=== PATIENT | male | born 1965 | race Caucasian/White ===

== ENCOUNTER → 2018-01-02 08:28 | Outpatient (REF) | payer MEDICAID, SELFPAY ==
[2018-01-02 20:47] LABS: ALT 30 U/L (12-78); AST 21 U/L (15-37); Albumin 3.8 g/dL (3.4-5.0); Alkaline Phosphatase 57 U/L (46-116); Anion Gap 8.7 mmol/L (3-11); BUN 16 mg/dL (7-18); Bilirubin, Total 0.8 mg/dL (0.2-1.0); CO2 28.3 mmol/L (21.0-32.0); Calcium 9.1 mg/dL (8.5-10.1); Chloride 104 mmol/L (98-107); Cholesterol 176 mg/dL (50-200); Glucose 102 mg/dL (70-100); HDL Cholesterol 30 mg/dL (40-60); LDL CHOLESTEROL 118 mg/dL (<100); Sodium 141 mmol/L (136-145); Total Protein 6.9 g/dL (6.4-8.2); Triglyceride 250 mg/dL (30-150)
== END ==
LOC: NCHCN 08:28
PROVIDERS: PCP Family Medicine; Visit Provider Family Medicine
DX: E78.5 Hyperlipidemia, unspecified (principal)
CPT/HCPCS: 80053; 80061; 83721

== ENCOUNTER 2020-03-12 16:23 | Outpatient (REF) | payer OTHER, SELFPAY ==
[2020-03-12 19:45] LABS: ALT 34 U/L (16-63); AST 19 U/L (15-37); Alkaline Phosphatase 61 U/L (46-116); Anion Gap 11.6 mmol/L (3-11); BUN 16 mg/dL (7-18); Bilirubin, Total 0.5 mg/dL (0.2-1.0); CO2 26.4 mmol/L (21.0-32.0); CREATININE 0.95 mg/dL (0.70-1.30); Calcium 9.3 mg/dL (8.5-10.1); Chloride 101 mmol/L (98-107); Cholesterol 244 mg/dL (<200); Glucose 104 mg/dL (74-106); HDL Cholesterol 27 mg/dL (40-60); Potassium 3.6 mmol/L (3.5-5.1); Sodium 139 mmol/L (136-145); Total Protein 7.5 g/dL (6.4-8.2); Triglyceride 448 mg/dL (<150)
[2020-03-12 20:12] LABS: LDL CHOLESTEROL 160 mg/dL (<100)
[2020-03-17 16:27] LABS: PSA, Screening 0.6 ng/mL (0-3.5)
== END 2020-03-12 16:43 ==
LOC: NCHCN 16:23
PROVIDERS: PCP Family Medicine; Visit Provider Family Medicine
DX: Z00.00 Encounter for general adult medical examination without abnormal findings (principal); I10 Essential (primary) hypertension; E78.5 Hyperlipidemia, unspecified
CPT/HCPCS: 80053; 80061; 83721; 84153

== ENCOUNTER 2020-04-23 18:08 | Outpatient (REF) | payer OTHER, SELFPAY ==
[2020-04-23 17:59] LABS: C Diff PCR Negative (Negative)
[2020-04-23 19:11] LABS: Abs Immature Grans 0.04 10^3/uL (0.0-0.06); Absolute Basophil Count 0.04 10^3/uL (0.0-0.2); Absolute Eosinophil Count 0.02 10^3/uL (0.0-0.7); Absolute Lymphocyte Count 1.14 10^3/uL (1.2-3.4); Absolute Monocyte Count 0.78 10^3/uL (0.1-0.8); Absolute Neutrophil Count 9.98 10^3/uL (1.2-6.7); Basophils % 0.3; Eosinophils % 0.2; HCT 46.4 % (40.0-50.0); HGB 15.1 g/dL (13.5-17.5); Immature Grans % 0.3; Lymphocytes % 9.5; MCH 27.4 pg (27.0-33.0); MCHC 32.5 % (32.0-36.0); MCV 84.2 fL (80-95); MPV 10.6 fL (8.0-11.0); Monocytes % 6.5; Neutrophils % 83.2; Nucleated RBC 0 %; RBC 5.51 10^6/uL (4.36-5.78); RDW 12.8 % (11.8-14.1); RDW-SD 39.3 fL
[2020-04-23 19:29] LABS: ALT 40 U/L (16-63); AST 25 U/L (15-37); Albumin 4.1 g/dL (3.4-5.0); Alkaline Phosphatase 59 U/L (46-116); Anion Gap 11.9 mmol/L (3-11); BUN 18 mg/dL (7-18); Bilirubin, Total 0.7 mg/dL (0.2-1.0); CO2 26.1 mmol/L (21.0-32.0); CREATININE 0.78 mg/dL (0.70-1.30); Calcium 9.1 mg/dL (8.5-10.1); Chloride 102 mmol/L (98-107); Glucose 89 mg/dL (74-106); Potassium 3.4 mmol/L (3.5-5.1); Sodium 140 mmol/L (136-145); Total Protein 7.3 g/dL (6.4-8.2)
[2020-04-23 19:44] LABS: Platelet Count 353 10^3/uL (130-400)
[2020-04-24 11:52] LABS: Campylobacter PCR Negative (Negative); Salmonella PCR Negative (Negative); Shiga Toxin PCR Negative (Negative); Shigella/Enteroinvasive Ecoli Negative (Negative)
== END 2020-04-23 18:28 ==
LOC: NCHCN 18:08
PROVIDERS: PCP Family Medicine; Visit Provider Nurse Practitioner Family
DX: R19.7 Diarrhea, unspecified (principal); R10.9 Unspecified abdominal pain
CPT/HCPCS: 80053; 87329; 87493; 87505; 83630; 85025

== ENCOUNTER 2021-03-11 12:56 | Outpatient (REF) | payer OTHER, SELFPAY ==
[2021-03-12 19:55] LABS: COVID-19 RT-PCR UVMMC Result Positive (Negative)
== END 2021-03-11 12:57 | disposition home or self-care (01) ==
LOC: NCHCN 12:56
PROVIDERS: PCP Family Medicine; Visit Provider Family Medicine
DX: Z20.822 Contact with and (suspected) exposure to COVID-19 (principal)
CPT/HCPCS: U0003

== ENCOUNTER 2021-03-15 12:06 | Emergency (ER) | payer OTHER, SELFPAY ==
[2021-03-15] VITALS (42 sets, daily range): BP systolic 130–155; BP diastolic 62–92; PULSE 93–104; RESP 19–36; TEMP 37.4–38.4; O2SAT 92–99
--- NOTE | 2021-03-15 13:00 | RT.EKG_ITS ---
APPROVED REPORT Exam: Resting ECG Reason for Exam: sob Patient Location: E HR:98 bpm ECG Measurements Heart Rate 98 AXIS WA 138 P 23 QRSd 96 QRS 13 QT 376 T -23 QTc 482 Conclusion Sinus rhythm...normal P axis, V-rate 60- 99 Nonspecific T abnormalities, diffuse leads...T <-0.10mV, ant/lat/inf. Sinus. T wave inversion II, III, aVF, V4-6. No STEMI. I have reviewed and interpreted ECG and agree with software generated interpretation.
--- NOTE | 2021-03-15 13:00 | DI.CT_ITS ---
Exam(s) CT CHEST PE CTA EXAM: CT CHEST PE CTA CLINICAL HISTORY: + Covid, sob. TECHNIQUE: Imaging Protocol: Axial CT angiography was performed with multi-slice acquisition and mu lti-planar and/or 3D reconstructions. CONTRAST MATERIAL: Intravenous: Omnipaque 350 Contrast volume:structured data in ml COMPARISON: No exams were available for comparison FINDINGS: CT angiography of the chest was performed with intravenous infusion of 100 cc of Omnipaque 350. There are multi focal predominantly peripheral intra pulmonary ground-glass and consolidative opaciti es consistent with the patient's known COVID pneumonia. No pleural effusion. Tracheobronchial tree a ppears intact. No evidence of pulmonary embolic disease. Thoracic aorta is of normal diameter, no thoracic aortic an eurysm or dissection, major branch vessels appear intact. No mediastinal or hilar adenopathy. Images obtained through the upper abdomen show hepatic steatosis. There is an unremarkable appearanc e of visualized portions spleen, pancreas, gallbladder, ducts and adrenals. There Ivory rods fused thoracic. There are sclerotic lesions of what appear to T1-T2 vertebral bodies, these have an appearance consistent bone islands but metastatic disease is not excluded basis of this examination. And bone scan may be considered if clinically appropriate, please correlate wi th any known history of malignancy. IMPRESSION: No evidence of pulmonary embolic disease. Multifocal pneumonia as described above in a patient who i s reportedly COVID positive period Indeterminate sclerotic lesions of T1 and T2 vertebral bodies, bone scan suggested for correlation if clinically appropriate. RADIATION DOSE DELIVERED: 524.88mGy.cm Total DLP 524.88mGy.cm Total DLP 14.55mGy CTDIvol DATA REPOSITORY: All CT scans at this facility are submitted to the National Radiology Data Registry (NRDR) Dose Index Registry (DIR) with the [employer] ([employer]). RADIATION OPTIMIZATION: All CT scans at this facility use at least one of these dose optimization te chniques: automated exposure control; mA and/or kV adjustment per patient size (includes targeted exa ms where dose is matched to clinical indication); or iterative reconstruction.
--- NOTE | 2021-03-15 13:17 | ED.GENADUL_ITS ---
Discharge Plan Disposition Patient Disposition: HOME Condition: Improving Discharge Details Clinical Impression: COVID, Hypokalemia Primary Care Provider: Susan Erickson V ED Provider: Rusty Mcgee Home Meds and New Rx's Prescriptions: Continued hydrochlorothiazide 25 MG tablet 25 mg PO DAILY RF: 0 simvastatin 10 MG tablet 10 mg PO DAILY RF: 0 atenolol 25 MG tablet 25 mg PO DAILY RF: 0 doxycycline monohydrate 100 MG tablet 100 mg PO BID Qty: 20 RF: 0 (DME) peak flow meter [Airzone Peak Flow Meter] 1 EACH device 1 ea Miscellaneous Q4H PRN Qty: 1 RF: 0 Discharge Instructions Instructions: Hypokalemia (ED), COVID-19 (Coronavirus Disease 2019) (ED) Additional Instructions: Your antibody infusion is complete. The rest of your work-up is unremarkable except for your low potassium. As we discussed I recommend having food and drink high in potassium over the next couple of days and then having an outpatient redraw through your primary care provider to be sure is an appropriate level. Plenty of fluids to avoid dehydration. [id number] Tylenol and/or Motrin as directed for discomfort. You will be going home today with a pulse oximeter, please watch your oxygen levels, if it drops below 90 on a consistent basis you will need to return to the ER. Otherwise please watch for new or worsening symptoms and return immediately to the ER. Lastly, I do recommend contacting your primary care provider tomorrow to discuss your ER visit, antibiotic infusion, and need for outpatient reevaluation. Discharge Data Discharge Date/Time-TO BE ENTERED AT DEPARTURE: 03/15/21 17:36 Medical Decision Making 56-year-old gentleman, not vaccinated, began Covid-like symptoms less than 10 days ago, subsequent positive test, has not started antibody infusions, presents today for worsening symptoms, shortness of breath, cough, dehydration and fatigue. Clinically he appears dry but is afebrile, sats are 93% on room air. Will obtain IV access, initiate a Covid work-up but will not retest for Covid itself as patient was recently positive. Given his ongoing shortness of breath will obtain CTA of the chest for further evaluation of disease severity and or PE. Patient and I discussed pros and cons of monoclonal antibody infusion, answered all of his questions best my ability, after doing so using shared decision-making option was to move forward with the infusion. Patient received a total of 2 L IV fluid. Given his hypokalemia he was also given 10 IV potassium and 40 p.o. potassium. During his ER observation he did develop a fever, given 1 g of p.o. Tylenol and upon reevaluation no longer was febrile. Patient tolerated the infusion well without any complications. He was observed in the ER for at least 1 hour after the infusion was completed Laboratory values reveal a white blood cell count of 6.37, D-dimer 1208, VBG of 1.2, potassium was 2.6, creatinine 0.9 with a GFR greater than 60, ferritin 506, lactate dehydrogenase 404, troponin less than 0.05 [address]cal[address] less than 0.1. [address] imaging negative for PE, does reveal multifocal pneumonia. Also reveals, indeterminate sclerotic lesions of T1 and T2 vertebral bodies We had a lengthy discussion regarding his presentation, vaccine status, hypokalemia, potassium supplementation, and other laboratory values. Patient is not requiring any symptoms oxygen, he appears not to feel well but appears stable, nontoxic. We discussed the importance of adequate hydration and making sure that he is sure to increase his potassium intake over the next few days with things such as eating bananas, drinking Gatorade-Powerade, etc. He will be sent home with a pulse oximeter to monitor his oxygen levels if they drop below 90 on excessive basis will return immediately to the ER. Otherwise he will contact his primary care provider to discuss his ongoing symptoms, antibiotic infusion, need for outpatient laboratory draw to recheck his potassium, I discus sed the sclerotic lesion of T1 and T2 which was incidentally found on his CTA. Patient has no additional questions or concerns and is comfortable discharge. Patient does admit that he is feeling moderate improvement with IV hydration, antibiotic infusion, Tylenol, etc. Strict discharge and return precautions provided This documentation was generated using [employer] system, please disregard any oddities of phrase or misspellings. Medical Records Medical records reviewed: Yes I reviewed the patient's medical records. Imaging Data Radiologic Study: Attestation: I personally reviewed and interpreted this imaging study as follows: Radiologist's impression: EXAM CT CHEST PE CTA CLINICAL HISTORY + Covid, sob. [] TECHNIQUE Imaging Protocol: Axial CT angiography was performed with multi-slice acquisition and multi-planar and/or 3D reconstructions. CONTRAST MATERIAL Intravenous: Omnipaque 350 Contrast volume:[structured data in ml] COMPARISON [No exams were available for comparison] [] FINDINGS [CT angiography of the chest was performed with intravenous infusion of 100 cc of Omnipaque 350. There are multi focal predominantly peripheral intra pulmonary ground-glass and consolidative opacities consistent with the patient's known COVID pneumonia. No pleural effusion. Tracheobronchial tree appears intact. No evidence of pulmonary embolic disease. Thoracic aorta is of normal diameter, no thoracic aortic aneurysm or dissection, major branch vessels appear intact. No mediastinal or hilar adenopathy. Images obtained through the upper abdomen show hepatic steatosis. There is an unremarkable appearance of visualized portions spleen, pancreas, gallbladder, ducts and adrenals. There Ivory rods fused thoracic. There are sclerotic lesions of what appear to T1-T2 vertebral bodies, these have an appearance consistent bone islands but metastatic disease is not excluded basis of this examination. And bone scan may be considered if clinically appropriate, please correlate with any known history of malignancy. IMPRESSION [No evidence of pulmonary embolic disease. Multifocal pneumonia as described above in a patient who is reportedly COVID positive period Indeterminate sclerotic lesions of T1 and T2 vertebral bodies, bone scan suggested for correlation if clinically appropriate Lab Data Lab results reviewed: Yes I reviewed the patient's lab results. Labs: Laboratory Tests Range/Units 03/15/21 03/15/21 03/15/21 13:28 13:28 13:28 WBC (4.4-10.8) 10^3/uL 6.37 RBC (4.36-5.78) 10^6/uL 5.46 Hgb (13.5-17.5) g/dL 14.8 Hct (40.0-50.0) % 44.0 MCV (80-95) fL 80.6 MCH (27.0-33.0) pg 27.1 MCHC (32.0-36.0) % 33.6 RDW (11.8-14.1) % 13.0 Plt Count (130-400) 10^3/uL 137 MPV (8.0-11.0) fL 9.9 Immature Gran % 0.8 Neutrophils % 88.8 Lymphocytes % 6.9 Monocytes % 3.3 Eosinophils % 0.0 Basophils % 0.2 Nucleated RBC % % 0 Absolute Neutrophils (1.2-6.7) 10^3/uL 5.66 Absolute Lymphocytes (1.2-3.4) 10^3/uL 0.44 L Absolute Monocytes (0.1-0.8) 10^3/uL 0.21 Absolute Eosinophils (0.0-0.7) 10^3/uL 0.00 Absolute Basophils (0.0-0.2) 10^3/uL 0.01 D-Dimer (<500) ng/mlFEU VBG Lactate (0.6-1.4) mmol/L 1.2 Sodium (136-145) mmol/L 136 Potassium (3.5-5.1) mmol/L 2.6 L* Chloride (98-107) mmol/L 94 L Carbon Dioxide (21.0-32.0) mmol/L 31.3 Anion Gap (3-11) mmol/L 10.7 BUN (7-18) mg/dL 12 Creatinine (0.70-1.30) mg/dL 0.9 Estimated GFR/1.73 m2 (mL/min/1.73m2) >= 60.00 Glucose (74-106) mg/dL 95 Calcium (8.5-10.1) mg/dL 8.6 Ferritin (26-388) ng/mL 506 H Total Bilirubin (0.2-1.0) mg/dL 0.6 AST (15-37) U/L 59 H ALT (16-63) U/L 37 Alkaline Phosphatase (46-116) U/L 62 Lactate Dehydrogenase (85-227) U/L 404 H Troponin I (<0.06) ng/mL < 0.05 C-Reactive Protein (0.0-0.3) mg/dL 8.23 H Total Protein (6.4-8.2) g/dL 7.7 Albumin (3.4-5.0) g/dL 3.4 Procalcitonin ng/mL < 0.1 Range/Units 03/15/21 03/15/21 13:28 16:29 WBC (4.4-10.8) 10^3/uL RBC (4.36-5.78) 10^6/uL Hgb (13.5-17.5) g/dL Hct (40.0-50.0) % MCV (80-95) fL MCH (27.0-33.0) pg MCHC (32.0-36.0) % RDW (11.8-14.1) % Plt Count (130-400) 10^3/uL MPV (8.0-11.0) fL Immature Gran % Neutrophils % Lymphocytes % Monocytes % Eosinophils % Basophils % Nucleated RBC % % Absolute Neutrophils (1.2-6.7) 10^3/uL Absolute Lymphocytes (1.2-3.4) 10^3/uL Absolute Monocytes (0.1-0.8) 10^3/uL Absolute Eosinophils (0.0-0.7) 10^3/uL Absolute Basophils (0.0-0.2) 10^3/uL D-Dimer (<500) ng/mlFEU 1208 H VBG Lactate (0.6-1.4) mmol/L Sodium (136-145) mmol/L Potassium (3.5-5.1) mmol/L Chloride (98-107) mmol/L Carbon Dioxide (21.0-32.0) mmol/L Anion Gap (3-11) mmol/L BUN (7-18) mg/dL Creatinine (0.70-1.30) mg/dL Estimated GFR/1.73 m2 (mL/min/1.73m2) Glucose (74-106) mg/dL Calcium (8.5-10.1) mg/dL Ferritin (26-388) ng/mL Total Bilirubin (0.2-1.0) mg/dL AST (15-37) U/L ALT (16-63) U/L Alkaline Phosphatase (46-116) U/L Lactate Dehydrogenase (85-227) U/L Troponin I (<0.06) ng/mL < 0.05 C-Reactive Protein (0.0-0.3) mg/dL Total Protein (6.4-8.2) g/dL Albumin (3.4-5.0) g/dL Procalcitonin ng/mL ECG Data Attestation: I personally reviewed and interpreted this ECG (s) as follows: Interpretation: Please see official report by Dr. Fontenot. Sinus rhythm, ventricular rate of 98. Nonspecific T wave abnormalities. No STEMI. HPI General Mode of arrival: ambulatory . Date/Time Provider Initiated Documentation: 03/15/21 12:18 . Limitations to Documentation: no limitations . Information obtained by: patient . HPI Narrative: This is a 56-year-old gentleman, past medical history of hypertension, hyperlipidemia, not a smoker, reports developing back pain, Covid-like symptoms last Sunday, tested later that week and came back positive on Sunday, presenting for ongoing dry cough, body aches, fatigue, shortness of breath, hoping that we can initiate monoclonal antibody therapy today. He reports dull global headache. Denies visual changes, neck pain, anterior chest pain, diarrhea, constipation with pain or swelling in his legs. He does report abdominal pain secondary to coughing and when he has a severe coughing fit it does cause him to vomit. He has been taking [id number] medication without much relief. Patient was not vaccinated against Covid. Patient reports diffuse mild body aches currently. Patient also reports decreased intake, concern for dehydration. Related Data Home Medications Medication Instructions Recorded Confirmed hydrochlorothiazide 25 mg PO DAILY 08/22/12 03/15/21 atenolol 25 mg PO DAILY 08/01/15 03/15/21 doxycycline monohydrate 100 mg PO BID #20 tab 08/01/15 03/15/21 peak flow meter [Airzone Peak Flow #1 ea 08/01/15 08/25/15 Meter] simvastatin 10 mg PO DAILY 08/01/15 03/15/21 Previous Rx's Medication Instructions Recorded doxycycline monohydrate 100 mg PO BID #20 tab 08/01/15 peak flow meter [Airzone Peak Flow #1 ea 08/01/15 Meter] Allergies Allergy/AdvReac Type Severity Reaction Status Date / Time morphine AdvReac Intermediate Unverified 03/15/21 12:57 General Stated Complaint: RespSymp NIMO: 3 Review of Systems Constitutional Constitutional: Reports fatigue, Denies fever(s) and Reports headache(s) Eyes Eyes: Denies change in vision ENT Ears, Nose, Mouth, and Throat: Reports headache(s) and Denies neck pain Cardiovascular Cardiovascular: Denies chest pain and Reports dyspnea Respiratory Respiratory: Reports cough and Reports dyspnea Gastrointestinal Gastrointestinal: Reports abdominal pain, Reports nausea and Reports vomiting Genitourinary Genitourinary: Denies dysuria Musculoskeletal Musculoskeletal: Reports myalgias and Denies neck pain Integumentary/Breasts Skin/Breast: Reports rash Neurologic Neurologic: Reports headache(s) Endocrine Endocrine: Reports fatigue Hematologic/Lymphatic Hematologic/Lymphatic: Denies easy bleeding and Denies easy bruising [facility] Social History Smoking/Tobacco Use Status: Never Smoking risk assessment performed?: Yes Alcohol Intake: current Alcohol Intake frequency: holidays/special occasions only Alcohol type: beer Drug use: Never Substance use type: does not use Do you feel safe at home: Yes Do you feel safe in your relationship?: Yes Exam Const General: cooperative, healthy appearing, comfortable and no acute distress Orientation: alert, awake and oriented x3 [facility] Head: normal to inspection, normocephalic and atraumatic Face and sinus: normal facial exam Mouth: moist mucous membranes abnormal (Dry) Eyes General: appearance normal, both eyes and all related structures Conjunctivae: conjunctivae normal Neck Neck: normal visual inspection, full ROM, trachea midline and supple Resp Effort & Inspection: normal respiratory effort, able to speak in complete sentences and cough Quality of cough: dry (mild) Auscultation: diminished lung sounds bilaterally in the lower lung aceves Cardio Rate: regular rate Rhythm: regular rhythm GI Palpation: soft and nontender Back/Spine/Pelvis Back: no CVA tenderness and No back tenderness Skin General skin exam: no rashes or lesions noted Neuro General: patient alert, patient awake, patient oriented x3, moves all extremities and no focal motor deficits Cognition: normal cognition Speech: speech normal Gait: normal gait Motor: muscle tone normal throughout Sensory Exam: no sensory deficits noted Extrem General: normal to inspection, full ROM and capillary refill normal Psych Appearance: grossly normal Mental Status: mental status grossly normal Course Vital Signs Vital signs: Vital Signs Temperature 37.4 C 03/15/21 12:55 Pulse 95 H 03/15/21 12:55 Respiratory Rate 20 03/15/21 12:55 Blood Pressure 143/76 H 03/15/21 12:55 Pulse Oximetry 93 03/15/21 12:55 Temperature 37.4 C 03/15/21 12:55 Temperature Source Skin 03/15/21 12:55 Pulse 95 H 03/15/21 12:55 Respiratory Rate 20 03/15/21 12:55 Respiratory Effort 03/15/21 12:59 Respiratory Depth Normal 03/15/21 12:59 Blood Pressure 143/76 H 03/15/21 12:55 Blood Pressure Position Supine 03/15/21 12:55 Pulse Oximetry 93 03/15/21 12:55 Oxygen Delivery Method Room Air 03/15/21 12:55 Oxygen Flow Rate 0 03/15/21 12:55 Pain Level 10 03/15/21 12:55 Comment 03/15/21 12:55
[2021-03-15 13:36] LABS: Lactate 1.2 mmol/L (0.6-1.4)
[2021-03-15] MEDS: Normal Saline 1,000 ML 1000 ML IV ×2 (13:37→15:10)
[2021-03-15 13:42] LABS: Abs Immature Grans 0.05 10^3/uL (0.0-0.06); Absolute Basophil Count 0.01 10^3/uL (0.0-0.2); Absolute Lymphocyte Count 0.44 10^3/uL (1.2-3.4); Absolute Monocyte Count 0.21 10^3/uL (0.1-0.8); Absolute Neutrophil Count 5.66 10^3/uL (1.2-6.7); Basophils % 0.2; HGB 14.8 g/dL (13.5-17.5); Immature Grans % 0.8; Lymphocytes % 6.9; MCH 27.1 pg (27.0-33.0); MCHC 33.6 % (32.0-36.0); MCV 80.6 fL (80-95); MPV 9.9 fL (8.0-11.0); Monocytes % 3.3; Neutrophils % 88.8; Nucleated RBC 0 %; Platelet Count 137 10^3/uL (130-400); RBC 5.46 10^6/uL (4.36-5.78); RDW-SD 37.8 fL; WBC 6.37 10^3/uL (4.4-10.8)
[2021-03-15 13:57] LABS: ALT 37 U/L (16-63); AST 59 U/L (15-37); Albumin 3.4 g/dL (3.4-5.0); Alkaline Phosphatase 62 U/L (46-116); Anion Gap 10.7 mmol/L (3-11); BUN 12 mg/dL (7-18); Bilirubin, Total 0.6 mg/dL (0.2-1.0); C-Reactive Protein 8.23 mg/dL (0.0-0.3); CO2 31.3 mmol/L (21.0-32.0); CREATININE 0.9 mg/dL (0.70-1.30); Calcium 8.6 mg/dL (8.5-10.1); Chloride 94 mmol/L (98-107); Glucose 95 mg/dL (74-106); LDH 404 U/L (85-227); Sodium 136 mmol/L (136-145); Total Protein 7.7 g/dL (6.4-8.2)
[2021-03-15 13:59] LABS: Potassium 2.6 mmol/L (3.5-5.1); Troponin I < 0.05 ng/mL (<0.06)
[2021-03-15 14:13] LABS: D-Dimer 1208 ng/mlFEU (<500)
[2021-03-15] MEDS: Potassium Chloride 20 MEQ TABCR 40 MEQ PO (14:21)
[2021-03-15 14:22] LABS: Ferritin 506 ng/mL (26-388)
[2021-03-15] MEDS: Omnipaque 350 MG/ML 100 ML BTL IJ (14:22)
[2021-03-15] MEDS: Normal Saline - Diluent 50 ML VIAL IV (14:22)
[2021-03-15 14:30] LABS: Procalcitonin < 0.1 ng/mL
[2021-03-15] MEDS: Acetaminophen 500 MG TAB 1000 MG PO (15:37)
[2021-03-15] MEDS: POTASSIUM CHLORIDE 10 MEQ/100 ML BAG 100 MEQ IVPB (15:37)
[2021-03-15 16:55] LABS: Troponin I < 0.05 ng/mL (<0.06)
== END 2021-03-15 17:36 | disposition home or self-care (01) ==
PROVIDERS: Emergency Provider Physician Assistant; PCP Family Medicine
DX: U07.1 COVID-19 (principal); E87.6 Hypokalemia; R06.02 Shortness of breath
CPT/HCPCS: 36415; 71275; 80053; 84145; 93005; 96361; 96365; 99285; 82728; 83605; 83615; 84484; 85025; 85379; 86140; 93010; 99284; J3480; J3490

== ENCOUNTER 2021-03-28 14:57 | Outpatient (REF) | payer OTHER, SELFPAY ==
[2021-03-28 20:50] LABS: Anion Gap 11.7 mmol/L (3-11); BUN 15 mg/dL (7-18); CO2 26.3 mmol/L (21.0-32.0); CREATININE 0.7 mg/dL (0.70-1.30); Calcium 8.8 mg/dL (8.5-10.1); Chloride 103 mmol/L (98-107); Glucose 120 mg/dL (74-106); Potassium 3.6 mmol/L (3.5-5.1); Sodium 141 mmol/L (136-145)
== END 2021-03-28 14:58 | disposition home or self-care (01) ==
LOC: NCHCN 14:57
PROVIDERS: PCP Family Medicine; Visit Provider Nurse Practitioner Family
DX: E87.6 Hypokalemia (principal)
CPT/HCPCS: 80048

== ENCOUNTER 2021-04-01 01:22 | Outpatient (CLI) | payer OTHER, SELFPAY ==
--- NOTE | 2021-04-01 10:15 | DI.NM_ITS ---
Exam(s) NM BONE SCAN WHOLE BODY GRP EXAM: NM BONE SCAN WHOLE BODY GRP CLINICAL HISTORY: ABNL FINDINGS PREV IMAGING R93.89, ? SCLEROTIC LESION. TECHNIQUE: Injected Dose: 25 mCi Tc-99m MDP Delayed Images: 2-3 hours. Whole body images and spot views of the the spine and ribs. COMPARISON: CT CT CHEST PE CTA from 03/15/[address] CHEST PE CTA from 03/15/2021 FINDINGS: Symmetric axial uptake. Bilateral renal excretion is identified. No focal area of intense suspicious uptake is seen. Mildly increased activity in the left maxilla, consistent with prior tooth extraction . Scoliosis is noted in the thoracic region. There are linear photopenic areas related to spinal ro ds. IMPRESSION: 1. No evidence of abnormal activity in the upper thoracic spine. Scoliosis and spinal rods are noted . DATA REPOSITORY:
== END 2021-04-01 01:42 ==
PROVIDERS: PCP Family Medicine; Visit Provider Family Medicine
DX: R93.89 Abnormal findings on diagnostic imaging of other specified body structures (principal); M41.84 Other forms of scoliosis, thoracic region
CPT/HCPCS: 78306

== ENCOUNTER 2023-01-09 09:01 | Outpatient (REF) | payer BC, SELFPAY ==
[2023-01-09 16:46] LABS: ALT 32 U/L (16-63); AST 20 U/L (15-37); Albumin 3.9 g/dL (3.4-5.0); Alkaline Phosphatase 59 U/L (46-116); Anion Gap 8.4 mmol/L (3-11); BUN 15 mg/dL (7-18); Bilirubin, Total 0.8 mg/dL (0.2-1.0); CO2 27.6 mmol/L (21.0-32.0); CREATININE 0.9 mg/dL (0.70-1.30); Calcium 9.1 mg/dL (8.5-10.1); Calculated LDL 88 mg/dL (<100); Chloride 103 mmol/L (98-107); Cholesterol 150 mg/dL (<200); Estimated GFR 100.24 (mL/min/1.73m2); Glucose 117 mg/dL (74-106); HDL Cholesterol 30 mg/dL (40-60); Potassium 3.7 mmol/L (3.5-5.1); Sodium 139 mmol/L (136-145); Total Protein 7.3 g/dL (6.4-8.2); Triglyceride 163 mg/dL (<150)
[2023-01-09 17:58] LABS: Hemoglobin A1C 5.8 % (<5.7)
[2023-01-09 22:56] LABS: PSA, Screening 0.8 ng/mL (<=3.5)
== END 2023-01-09 09:02 | disposition home or self-care (01) ==
LOC: NCHCN 09:01
PROVIDERS: PCP Family Medicine; Visit Provider Family Medicine
DX: Z00.00 Encounter for general adult medical examination without abnormal findings (principal); I10 Essential (primary) hypertension; E78.5 Hyperlipidemia, unspecified; K76.0 Fatty (change of) liver, not elsewhere classified; Z12.5 Encounter for screening for malignant neoplasm of prostate
CPT/HCPCS: 80053; 80061; 84153; 83036

== ENCOUNTER 2024-01-22 18:02 | Outpatient (REF) | payer BC, SELFPAY ==
[2024-01-22 17:36] LABS: Hemoglobin A1C 5.9 % (<5.7)
[2024-01-22 17:48] LABS: ALT 34 U/L (16-63); AST 24 U/L (15-37); Albumin 4.1 g/dL (3.4-5.0); Alkaline Phosphatase 63 U/L (46-116); Anion Gap 8.5 mmol/L (3-11); BUN 11 mg/dL (7-18); Bilirubin, Total 0.77 mg/dL (0.2-1.0); CO2 29.5 mmol/L (21.0-32.0); CREATININE 0.8 mg/dL (0.70-1.30); Calcium 9.8 mg/dL (8.5-10.1); Chloride 101 mmol/L (98-107); Estimated GFR 103.22 (mL/min/1.73m2); Glucose 96 mg/dL (74-106); Potassium 3.4 mmol/L (3.5-5.1); Sodium 139 mmol/L (136-145)
[2024-01-23 18:36] LABS: PSA, Screening 0.9 ng/mL (<=3.5)
== END 2024-01-22 18:03 | disposition home or self-care (01) ==
LOC: NCHCN 18:02
PROVIDERS: PCP Family Medicine; Visit Provider Family Medicine
DX: I10 Essential (primary) hypertension (principal); Z13.1 Encounter for screening for diabetes mellitus; Z12.5 Encounter for screening for malignant neoplasm of prostate
CPT/HCPCS: 80053; 84153; 83036

== ENCOUNTER 2024-09-02 16:13 | Outpatient (REF) | payer BC, SELFPAY ==
[2024-09-02 15:39] LABS: ALT 31 U/L (16-63); AST 20 U/L (15-37); Albumin 4.2 g/dL (3.4-5.0); Alkaline Phosphatase 68 U/L (46-116); Anion Gap 9.4 mmol/L (3-11); BUN 19 mg/dL (7-18); Bilirubin, Total 0.8 mg/dL (0.2-1.0); CO2 26.6 mmol/L (21.0-32.0); CREATININE 0.8 mg/dL (0.70-1.30); Calcium 9.6 mg/dL (8.5-10.1); Chloride 105 mmol/L (98-107); Creatine Kinase 282 U/L (39-308); Estimated GFR 102.58 (mL/min/1.73m2); Glucose 97 mg/dL (74-106); Potassium 3.7 mmol/L (3.5-5.1); Sodium 141 mmol/L (136-145); Total Protein 7.4 g/dL (6.4-8.2)
== END 2024-09-02 16:14 | disposition home or self-care (01) ==
LOC: NCHCN 16:13
PROVIDERS: PCP Family Medicine; Visit Provider Family Medicine
DX: M54.50 Low back pain, unspecified (principal); I10 Essential (primary) hypertension
CPT/HCPCS: 80053; 82550